=== PATIENT | male | born 1980 | race Caucasian/White ===

== ENCOUNTER 2018-09-09 16:37 | Emergency (ER) | payer SELFPAY ==
--- NOTE | 2018-09-09 17:18 | RAD ---
Left RIBS 4 views Chest one view HISTORY: Fall. Chest injury. FINDINGS: No displaced rib fracture or pneumothorax. Cardiac silhouette and pulmonary vasculature are unremarkable. Left subclavian cardiac electronic dev ice is in place. No lobar consolidation. IMPRESSION: No significant abnormalities are demonstrated.
== END 2018-09-09 17:35 | disposition home or self-care (01) ==
LOC: SCSER 16:37
DX: S20.212A Contusion of left front wall of thorax, initial encounter (principal); F17.210 Nicotine dependence, cigarettes, uncomplicated; I25.2 Old myocardial infarction; Z71.6 Tobacco abuse counseling; W18.30XA Fall on same level, unspecified, initial encounter
CPT/HCPCS: 99406